=== PATIENT | female | born 1955 | race Two or more races ===

== ENCOUNTER 2022-10-22 09:20 | Inpatient (IN) | payer OTHER ==
[~2022-10-22] VITALS: Ht 154.9 cm; Wt 79.4 kg
[2022-10-22] MEDS ORDERED: VYVANSE20 MG PO (10:02)
[2022-10-22] MEDS ORDERED: SYNTHROID200 MCG PO (10:03)
[2022-10-22] MEDS ORDERED: SIMVASTATIN80 MG PO (10:03)
[2022-10-22] MEDS ORDERED: KAPSPARGO SPRIN25 MG PO (10:03)
[2022-10-29] MEDS ORDERED: DUI500 PO (16:03)
[2022-10-29] MEDS ORDERED: ELIQUIS2.5 MG PO (16:03)
[2022-10-29] MEDS ORDERED: PERCOCET 5-3251 EACH PO (16:03)
== END 2022-10-29 21:48 | disposition home or self-care (01) | DRG 470 ==
LOC: SURH 10-27 07:00 → O/R 10-27 15:41 → SURH 10-27 17:01
PROVIDERS: ADMIT Orthopaedic Surgery; ATTEND Orthopaedic Surgery
PROC: 0MNN0ZZ Release Right Knee Bursa and Ligament, Open Approach (ICD-10-PCS; 2022-10-27)
PROC: 0SRC0J9 Replacement of Right Knee Joint with Synthetic Substitute, Cemented, Open Approach (ICD-10-PCS; principal; 2022-10-27 07:00)
DX: M17.11 Unilateral primary osteoarthritis, right knee (principal); M22.11 Recurrent subluxation of patella, right knee; I10 Essential (primary) hypertension